=== PATIENT | male | born 1960 | race Caucasian/White ===

== ENCOUNTER 2018-07-08 19:09 | Emergency (ER) | payer MEDICARE | END 2018-07-08 20:02 | disposition left against medical advice (07) | LOC: ERS 19:09 | DX: Z53.21 Procedure and treatment not carried out due to patient leaving prior to being seen by health care provider (principal) ==

== ENCOUNTER 2018-07-16 08:40 | Outpatient (CLI) | payer MEDICARE ==
[2018-07-16] MEDS ORDERED: Gadobenate Dimeglumine 529 MG/1 ML (20ML VIAL) ONE (10:46)
--- NOTE | 2018-07-16 13:29 | MRI ---
MRI BRAIN AND ORBITS WITH AND WITHOUT CONTRAST: HISTORY: A 57-year-old male with diplopia (H53.2, double vision with both eyes open). TECHNIQUE: Multiple sequences obtained in axial, sagittal, and coronal planes; pre and post IV injection of gado linium-based contrast agent: MultiHance 20 mL. In addition to standard whole brain sequences, additional thin slices were obtained through the orbit s. FINDINGS: The ventricles are normal in size and configuration. There is no restricted diffusion, abnormal intr aaxial enhancement, mass, midline shift or any other mass effect, recent intraaxial hemorrhage, or ex traaxial fluid collection. There are multiple scattered punctate T2-hyperintensities in the cerebral white matter consistent with mild chronic ischemic white matter changes due to mild microvascular at herosclerosis. The post contrast, fat suppressed, T1 weighted orbital sequences are degraded by jen ent motion. Bilateral globes are symmetrically normal in shape, and have normal signal, with no abno rmal enhancement. Optic nerves are normal in caliber, with no obvious edema or abnormal enhancement. Extraocular muscles are bilaterally symmetrical and normal. No intraorbital mass. The optic chias m is normal with no extrinsic compression. IMPRESSION: 1. Mild chronic ischemic white matter changes. 2. Otherwise negative. jnr POS: JAQUELINE
== END 2018-07-16 08:41 | disposition home or self-care (01) ==
LOC: MRI 08:40
PROVIDERS: ATTEND Family Medicine
DX: H53.2 Diplopia (principal)
CPT/HCPCS: 70553; A9579